=== PATIENT | male | born 1945 | race Caucasian/White ===

== ENCOUNTER 2018-09-06 08:50 | Inpatient (IN) | payer MEDICARE, BC ==
[2018-08-31 11:25] LABS: BASOPHILS % (AUTO) 0 % (0-1); EOSINOPHILS # (AUTO) 0.1 X10'3 (0-0.9); EOSINOPHILS % (AUTO) 1.3 % (0-6); LYMPHOCYTES % (AUTO) 14.4 % (21-51); MEAN CORPUSCULAR HGB CONC 33.1 % (33.0-36.5); MEAN CORPUSCULAR VOLUME 90.8 FL (78-98); MEAN PLATELET VOLUME 8.3 FL (7.4-10.4); MONOCYTES # (AUTO) 0.6 X10'3 (0-0.9); MONOCYTES % (AUTO) 8.7 % (2-12); NEUTROPHILS # (AUTO) 5.2 X10'3 (1.8-7.7); NEUTROPHILS % (AUTO) 75.6 % (42-75); PRE OP HEMOGLOBIN 14.9 g/dL (14.0-17.9); PRE OP PLATELET COUNT 236 X10'3 (140-440); RED BLOOD COUNT 4.96 X10'6 (4.70-6.10); RED CELL DISTRIBUTION WIDTH 13.6 % (11.5-14.5)
[2018-08-31 11:44] LABS: PRE OP PROTIME 10.3 SECONDS (9.0-12.0)
[2018-08-31 11:52] LABS: ALBUMIN/GLOBULIN RATIO 1.2 (1.1-1.5); ALKALINE PHOSPHATASE 91 IU/L (46-116); BLOOD UREA NITROGEN 20 MG/DL (7-18); BUN/CREATININE RATIO 19.2 (5.4-32.0); CALCIUM 9.5 MG/DL (8.5-10.1); CHLORIDE 103 MMOL/L (99-107); CREATININE 1.04 MG/DL (0.60-1.10); PRE OP ALT 54 U/L (30-65); PRE OP ANION GAP 12 (8-16); PRE OP AST 39 U/L (10-37); PRE OP BILIRUB, TOTAL 0.6 MG/DL (0.0-1.0); PRE OP GLUCOSE 87 MG/DL (70-104); PRE OP POTASSIUM 4.4 MMOL/L (3.4-5.1); PRE OP SODIUM 140 MMOL/L (135-145); TOTAL CARBON DIOXIDE 25.5 MMOL/L (24-32); TOTAL PROTEIN 7.4 G/DL (6.4-8.2); eGFR 70 ML/MIN
[~2018-09-06] VITALS: Ht 177.8 cm; Wt 80.5 kg
[2018-09-06] VITALS (19 sets, daily range): BP systolic 107–147; BP diastolic 52–92
[~2018-09-06 08:50] MED LIST: ASPI81TA46 PO; FINA5TAB11 PO; HYDR-3964 PO; LANS15CA18 PO; MELO-102 PO; OCUVITE PO; SIMV40TA4 PO; TAMS0.4C32 PO; UBID100C16 PO; VANCOMYCIN INJ 1000 MG in NORMAL SALINE 250ml IV.SOLN IV ONE; cefazolin/dext.iso 2gm/100 ML IV ONE; famotidine 20mg tablet PO ONE; ringers solution, lacted 1,000 ML IV SCH; tranexamic acid inj. 800 MG in normal saline 100ml IV soln 92 ML IV ONE
[2018-09-06] MEDS ORDERED: LIDOcaine 1% (10mg/ml) 2ml vial ONE (09:27)
[2018-09-06] MEDS ORDERED: tranexamic acid inj. 800 MG in normal saline 100ml IV soln 92 ML IV ONE (09:30)
[2018-09-06] MEDS ORDERED: ROPIVAcaine 0.5% (5mg/ml) 30ml vial ONE ×2 (10:40→13:29)
[2018-09-06] MEDS ORDERED: vancomycin 1,000mg inj ONE (10:40)
[2018-09-06] MEDS ORDERED: ketorolac trometh. 30mg/ml inj. ONE (10:40)
[2018-09-06] MEDS ORDERED: tetracaine 1% (10mg/ml) pres. free inj. ONE (11:14)
[2018-09-06] MEDS ORDERED: fentaNYL/PF 50MCG/1 ML 2ML syringe ONE (11:20)
[2018-09-06] MEDS ORDERED: MIDAZolam 1mg/ml 10ml vial ONE (11:20)
[2018-09-06] MEDS ORDERED: BUPIVAcaine/dex-water/PF 7.5 mg/ml 2ml ampul ONE (11:23)
[2018-09-06] MEDS ORDERED: ondansetron/PF 4mg/2ml inj IV PRN (12:00)
[2018-09-06] MEDS ORDERED: proCHLORperazine 10 MG/2 ml inj IV PRN (12:00)
[2018-09-06] MEDS ORDERED: morphine 4 MG/ML inj SYRINge IV PRN ×2 (12:00)
[2018-09-06] MEDS ORDERED: meperidine/PF 25mg/ml syringe IV PRN ×3 (12:00)
[2018-09-06] MEDS ORDERED: ringers solution, lacted 1,000 ML IV SCH (12:00)
[2018-09-06] MEDS ORDERED: propofol inj 20 ML IV ONE ×2 (13:28)
[2018-09-06] MEDS ORDERED: HYDROmorphone 1 mg/ml syringe IV PRN ×2 (14:00)
[2018-09-06] MEDS: potassium cl 20mEq in 1/2 NS 1,000 ML IV SCH (14:00)
[2018-09-06] MEDS ORDERED: diphenhydrAMINE 25mg capsule PO PRN ×2 (14:00)
[2018-09-06] MEDS ORDERED: acetaminophen 325mg tablet PO PRN (14:00)
[2018-09-06] MEDS ORDERED: bisacodyl 10mg suppository rectal RC PRN (14:00)
[2018-09-06] MEDS ORDERED: magnesium hydroxide 30ml (MOM) UD suspension PO PRN (14:00)
[2018-09-06] MEDS: ketorolac tromethamine 15mg/ml inj. IV SCH ×2 (14:00→20:48)
[2018-09-06] MEDS: ceFAZolin 1GM/D5W- ADD-VANTAGE 50 ML IV SCH ×2 (16:25→23:44)
[2018-09-06] MEDS: oxyCODONE IR 5mg (immed. release) tablet PO PRN ×2 (16:29→21:31)
[2018-09-06] MEDS: acetaminophen 325mg tablet PO SCH ×2 (16:29→20:48)
[2018-09-06] MEDS ORDERED: tranexamic acid inj. 800 MG in normal saline 100ml IV soln 100 ML IV ONE (17:00)
[2018-09-06] MEDS ORDERED: vancomycin/NS 1 GM ADD-VANTAGE 250 ML IV SCH (20:00)
[2018-09-06] MEDS: sennosides 8.6mg tablet PO SCH (20:48)
[2018-09-06] MEDS: tamsulosin 0.4mg capsule PO SCH (20:48)
[2018-09-06] MEDS: finasteride 5mg tablet PO SCH (20:48)
[2018-09-06] MEDS: gabapentin 300mg capsule PO SCH (20:48)
[2018-09-07] VITALS (7 sets, daily range): BP systolic 90–121; BP diastolic 43–65
[2018-09-07] MEDS: acetaminophen 325mg tablet PO SCH ×4 (02:08→21:01)
[2018-09-07] MEDS: ketorolac tromethamine 15mg/ml inj. IV SCH ×2 (02:09→07:26)
[2018-09-07] MEDS: potassium cl 20mEq in 1/2 NS 1,000 ML IV SCH ×4 (02:12→21:48)
[2018-09-07 05:03] LABS: BASOPHILS % (AUTO) 0 % (0-1); EOSINOPHILS # (AUTO) 0.1 X10'3 (0-0.9); HEMATOCRIT 36.7 % (42.0-52.0); HEMOGLOBIN 12.1 g/dl (14.0-17.9); LYMPHOCYTES # (AUTO) 0.5 X10'3 (1.1-4.8); LYMPHOCYTES % (AUTO) 3.7 % (21-51); MEAN CORPUSCULAR HEMOGLOBIN 30.2 PG (27.0-31.0); MEAN CORPUSCULAR HGB CONC 33.1 % (33.0-36.5); MEAN CORPUSCULAR VOLUME 91.3 FL (78-98); MEAN PLATELET VOLUME 8.6 FL (7.4-10.4); MONOCYTES # (AUTO) 0.6 X10'3 (0-0.9); MONOCYTES % (AUTO) 4.4 % (2-12); NEUTROPHILS # (AUTO) 11.7 X10'3 (1.8-7.7); NEUTROPHILS % (AUTO) 90.9 % (42-75); PLATELET COUNT 209 X10'3 (140-440); RED BLOOD COUNT 4.01 X10'6 (4.70-6.10); RED CELL DISTRIBUTION WIDTH 13.1 % (11.5-14.5); WHITE BLOOD COUNT 12.8 X10'3 (4.5-11.0)
[2018-09-07 05:19] LABS: ANION GAP 9 (8-16); CHLORIDE 107 MMOL/L (99-107); POTASSIUM 4.4 MMOL/L (3.5-5.1); SODIUM 138 MMOL/L (135-145); TOTAL CARBON DIOXIDE 22.3 MMOL/L (24-32)
[2018-09-07] MEDS: oxyCODONE IR 5mg (immed. release) tablet PO PRN ×5 (05:33→21:03)
[2018-09-07] MEDS: pantoprazole 40mg Tablet.DR PO SCH (07:25)
[2018-09-07] MEDS: atorvastatin 10mg tablet PO SCH (07:27)
[2018-09-07] MEDS: gabapentin 300mg capsule PO SCH ×3 (07:27→21:01)
[2018-09-07] MEDS ORDERED: aspirin 81mg tablet.DR PO SCH (08:00)
[2018-09-07] MEDS ORDERED: non-formulary drug (Ubidecarenone (Coq-10) 300 MG) PO SCH (08:00)
[2018-09-07] MEDS: aspirin 325mg tablet PO SCH (08:20)
[2018-09-07] MEDS: ondansetron/PF 4mg/2ml inj IV PRN (12:41)
[2018-09-07] MEDS: lactose-reduced food (Ensure High Protein) 237ml bottle PO SCH (18:00)
[2018-09-07] MEDS: finasteride 5mg tablet PO SCH (21:00)
[2018-09-07] MEDS: tamsulosin 0.4mg capsule PO SCH (21:01)
[2018-09-07] MEDS: sennosides 8.6mg tablet PO SCH (21:01)
[2018-09-07] MEDS: celeCOXIB 100mg capsule PO SCH (21:01)
[2018-09-08] MEDS: oxyCODONE IR 5mg (immed. release) tablet PO PRN ×4 (01:57→18:07)
[2018-09-08] MEDS: acetaminophen 325mg tablet PO SCH ×2 (01:58→07:34)
[2018-09-08 05:00] VITALS: BP 105/51
[2018-09-08 05:22] LABS: BASOPHILS % (AUTO) 0.1 % (0-1); EOSINOPHILS # (AUTO) 0.2 X10'3 (0-0.9); EOSINOPHILS % (AUTO) 2.7 % (0-6); HEMATOCRIT 32.4 % (42.0-52.0); HEMOGLOBIN 10.9 g/dl (14.0-17.9); LYMPHOCYTES # (AUTO) 1.1 X10'3 (1.1-4.8); LYMPHOCYTES % (AUTO) 17.4 % (21-51); MEAN CORPUSCULAR HEMOGLOBIN 30.2 PG (27.0-31.0); MEAN CORPUSCULAR HGB CONC 33.7 % (33.0-36.5); MEAN CORPUSCULAR VOLUME 89.7 FL (78-98); MEAN PLATELET VOLUME 8.1 FL (7.4-10.4); MONOCYTES # (AUTO) 0.8 X10'3 (0-0.9); MONOCYTES % (AUTO) 13.2 % (2-12); NEUTROPHILS # (AUTO) 4.1 X10'3 (1.8-7.7); NEUTROPHILS % (AUTO) 66.6 % (42-75); PLATELET COUNT 195 X10'3 (140-440); RED BLOOD COUNT 3.61 X10'6 (4.70-6.10); RED CELL DISTRIBUTION WIDTH 13.3 % (11.5-14.5); WHITE BLOOD COUNT 6.2 X10'3 (4.5-11.0)
[2018-09-08] MEDS: potassium cl 20mEq in 1/2 NS 1,000 ML IV SCH (06:00)
[2018-09-08] MEDS: celeCOXIB 100mg capsule PO SCH (07:32)
[2018-09-08] MEDS: pantoprazole 40mg Tablet.DR PO SCH (07:32)
[2018-09-08] MEDS: atorvastatin 10mg tablet PO SCH (07:32)
[2018-09-08] MEDS: aspirin 325mg tablet PO SCH (07:32)
[2018-09-08] MEDS: naproxen 500mg tablet PO SCH ×2 (07:32→17:58)
[2018-09-08] MEDS: gabapentin 300mg capsule PO SCH ×2 (07:33→13:54)
[2018-09-08] MEDS: ondansetron/PF 4mg/2ml inj IV PRN (08:21)
[2018-09-08] MEDS: lactose-reduced food (Ensure High Protein) 237ml bottle PO SCH ×2 (08:25→13:54)
[2018-09-08 10:00] VITALS: BP 117/50
[2018-09-08] MEDS ORDERED: acetaminophen 325mg tablet PO PRN (14:00)
== END 2018-09-08 18:35 | disposition home or self-care (01) | DRG 470 ==
LOC: PAS IN 08:50 → EDSTATUS 12:00 → ORTHO 4S 15:48
PROVIDERS: ADMIT Orthopaedic Surgery; ATTEND Orthopaedic Surgery
PROC: 8E0YXBZ Computer Assisted Procedure of Lower Extremity (ICD-10-PCS; 2018-09-06)
PROC: 8E0YXCZ Robotic Assisted Procedure of Lower Extremity (ICD-10-PCS; 2018-09-06)
PROC: 3E0T3BZ Introduction of Anesthetic Agent into Peripheral Nerves and Plexi, Percutaneous Approach (ICD-10-PCS; 2018-09-06)
PROC: 0SRC0J9 Replacement of Right Knee Joint with Synthetic Substitute, Cemented, Open Approach (ICD-10-PCS; principal; 2018-09-06 11:21)
DX: M17.11 Unilateral primary osteoarthritis, right knee (principal); D62 Acute posthemorrhagic anemia; S83.206A Unspecified tear of unspecified meniscus, current injury, right knee, initial encounter; E78.5 Hyperlipidemia, unspecified; X58.XXXA Exposure to other specified factors, initial encounter; K21.9 Gastro-esophageal reflux disease without esophagitis; Z72.89 Other problems related to lifestyle; Z79.899 Other long term (current) drug therapy; Z80.9 Family history of malignant neoplasm, unspecified; Y93.89 Activity, other specified; Y92.89 Other specified places as the place of occurrence of the external cause; Y99.8 Other external cause status
CPT/HCPCS: 36415; 80051; 80053; 85025; 85610; 85730; 87070; 97110; 97116; 97161; 97530; A6455; A7000; C1713; C1758; C1776; G0378; J0690; J1170; J1885; J2250; J2405; J2704; J2795; J3010; J3370; J3490; J7030; J7120